=== PATIENT | male | born 1970 | race Caucasian/White ===

== ENCOUNTER 2022-09-25 09:15 | Day surgery (SDC) | payer BC ==
[2022-09-25] MEDS ORDERED: Ondansetron 4 MG/2 ML SDV IV ONE (09:16)
[2022-09-25] MEDS ORDERED: Glycopyrrolate 0.2 MG/ML SDV IVPUSH ONE (09:16)
[2022-09-25] MEDS: Sodium Chloride 0.9% 10 ML Syringe FLUSH PRN (09:30)
[2022-09-25] MEDS: Lactated Ringers 1,000 ML IV SCH (09:36)
[2022-09-25] MEDS ORDERED: Midazolam 1 MG/ML 2 ML SDV ONE (10:05)
[2022-09-25] MEDS ORDERED: Propofol 200 MG/20 ML SDV ONE (10:05)
[2022-09-25] MEDS ORDERED: Scopolamine 1.5 MG Transdermal Patch ONE (10:39)
[2022-09-25] MEDS ORDERED: Lidocaine 2% 5 ML SDV ONE (10:39)
[2022-09-25] MEDS ORDERED: Dexamethasone 4 MG/ML SDV ONE (11:04)
[2022-09-25 12:07] VITALS: BP 128/79; PULSE 53
== END 2022-09-25 12:10 | disposition home or self-care (01) ==
LOC: KA.SDS 09:15
PROVIDERS: ATTEND Surgery
DX: K21.00 Gastro-esophageal reflux disease with esophagitis, without bleeding (principal); K29.50 Unspecified chronic gastritis without bleeding; K44.9 Diaphragmatic hernia without obstruction or gangrene; I10 Essential (primary) hypertension; Z79.899 Other long term (current) drug therapy
CPT/HCPCS: A9270-GY; J1100; J2250; J2405; J2704; J3490; J7120

== ENCOUNTER 2024-06-20 19:44 | Emergency (ER) | payer BC ==
[2024-06-20] MEDS: Lidocaine 1% with EPINEPHrine 1:100,000 20 ML MDV ONE (19:57)
[2024-06-20] MEDS: Lidocaine 1% 5 ML VIAL ONE (19:58)
[2024-06-20] MEDS: Diphtheria,Pertussis(Acell),Tetanus Vaccine 0.5 ML Syringe IM ONE (19:59)
[2024-06-20] MEDS: Lidocaine 1% 5 ML VIAL INJECT ONE (20:00)
[2024-06-20] MEDS: Bacitracin/Neomycin/Polymyxin B Oint 0.9 GM U/D Packet TOP ONE (20:22)
[2024-06-20] MEDS: Bacitracin/Neomycin/Polymyxin B Oint 0.9 GM U/D Packet ONE (20:22)
[2024-06-20 20:44] VITALS: BP 121/82; PULSE 60
== END 2024-06-20 20:40 | disposition home or self-care (01) ==
LOC: KA.ED 19:44
DX: S01.21XA Laceration without foreign body of nose, initial encounter (principal); I10 Essential (primary) hypertension; K21.9 Gastro-esophageal reflux disease without esophagitis; Z23 Encounter for immunization; Z86.16 Personal history of COVID-19; Z79.899 Other long term (current) drug therapy; W22.8XXA Striking against or struck by other objects, initial encounter
CPT/HCPCS: 12011; 70160; 90471; 90715; 99283; 99283-25; J3490

== ENCOUNTER 2025-02-23 09:38 | Day surgery (SDC) | payer BC ==
[~2025-02-23 09:38] MED LIST: Sodium Chloride 0.9% 10 ML Syringe FLUSH PRN
[2025-02-23] MEDS: Lactated Ringers 1,000 ML IV SCH (09:50)
[2025-02-23] MEDS ORDERED: Propofol 200 MG/20 ML SDV ONE (10:37)
[2025-02-23] MEDS ORDERED: Midazolam 1 MG/ML 2 ML SDV ONE (10:37)
[2025-02-23 12:09] VITALS: BP 105/72; PULSE 52
== END 2025-02-23 12:21 | disposition home or self-care (01) ==
LOC: KA.SDS 09:38
PROVIDERS: ATTEND Surgery
DX: K57.30 Diverticulosis of large intestine without perforation or abscess without bleeding (principal); K59.00 Constipation, unspecified; Z79.899 Other long term (current) drug therapy
CPT/HCPCS: 00811; J2250; J2704; J7120